=== PATIENT | female | born 1975 | race Caucasian/White ===

== ENCOUNTER 2017-03-27 17:26 | Emergency (ER) | payer OTHER ==
[~2017-03-27] VITALS: Ht 165.1 cm; Wt 74.8 kg
--- NOTE | 2017-03-27 17:59 | NUR ---
Pt stated " you guys are taking too long " and walked out of ER with steady gait.
== END 2017-03-27 18:02 | disposition left against medical advice (07) ==
LOC: ER 17:27
DX: F41.9 Anxiety disorder, unspecified (principal); Z53.21 Procedure and treatment not carried out due to patient leaving prior to being seen by health care provider
CPT/HCPCS: A4663

== ENCOUNTER 2017-06-26 17:52 | Emergency (ER) | payer SELFPAY ==
[~2017-06-26] VITALS: Ht 162.6 cm; Wt 81.6 kg
[2017-06-26] MEDS ORDERED: FLUORESCEIN SODIUM 1 MG STRIP OP ONE (18:30)
[2017-06-26] MEDS ORDERED: TETRACAINE HCL 0.5% OPHT DROP 2 ML BOTTLE OP ONE (18:30)
[2017-06-26] MEDS ORDERED: SODIUM/POT/SOD CHL OPHT WASH 120 ML BOTTLE OP ONE (18:45)
[2017-06-26] MEDS ORDERED: TETRACAINE HCL 0.5% OPHT DROP 2 ML BOTTLE ONE (18:45)
[2017-06-26] MEDS ORDERED: FLUORESCEIN SODIUM 1 MG STRIP ONE (18:46)
--- NOTE | 2017-06-26 18:52 | NUR ---
Patient discharged to home in stable conditon. Written and verbal after care instructions given. Patient verbalizes understanding of instructions.PT WALKS IN STEADY GAIT. PT ABLE TO OPEN EYES AND SEE BETTER. PT SAYS FEELS BETTER.
[2017-06-26] MEDS ORDERED: SODIUM/POT/SOD CHL OPHT WASH 120 ML BOTTLE ONE (18:54)
[2017-06-26 18:55] VITALS: BP 109/61
== END 2017-06-26 18:56 | disposition home or self-care (01) ==
LOC: ER 17:53
DX: S05.01XA Injury of conjunctiva and corneal abrasion without foreign body, right eye, initial encounter (principal); S05.02XA Injury of conjunctiva and corneal abrasion without foreign body, left eye, initial encounter; X58.XXXA Exposure to other specified factors, initial encounter; Y93.89 Activity, other specified; Y92.89 Other specified places as the place of occurrence of the external cause; Y99.8 Other external cause status
CPT/HCPCS: A4663

== ENCOUNTER 2022-07-05 20:41 | Emergency (ER) | payer SELFPAY ==
--- NOTE | 2022-07-05 20:52 | NUR ---
PATIENT WAS NOT TRIAGED OR SEEN BY ER MD.
== END 2022-07-05 20:52 | disposition left against medical advice (07) ==
LOC: ER 20:41
DX: Z53.21 Procedure and treatment not carried out due to patient leaving prior to being seen by health care provider (principal)

== ENCOUNTER 2025-05-09 21:42 | Emergency (ER) | payer SELFPAY ==
[~2025-05-09] VITALS: Ht 165.1 cm; Wt 81.6 kg
[2025-05-09 22:32] LABS: CREATININE 0.7 mg/dL (0.6-1.3); SODIUM SERUM 141 mmol/L (136-145); UREA NITROGEN, BLOOD 16 mg/dL (7-18)
[2025-05-09 22:33] LABS: ETHANOL < 3 MG/DL (0-10)
[2025-05-09 22:37] LABS: ASPARTATE AMINOTRANSFERASE 15 U/L (15-37); TOTAL PROTEIN, SERUM 7.6 g/dL (6.4-8.2)
[2025-05-09 22:59] LABS: PLATELET COUNT (AUTO) 259 K/uL (179-408); RED BLOOD CELL COUNT(AUTO) 4.37 MIL/uL (3.63-4.92); RED CELL DISTRIBUTION WIDTH 13.8 % (12.3-17.7); WHITE BLOOD COUNT (AUTO) 8.6 K/uL (3.8-11.8)
[2025-05-10 04:30] LABS: *BILIRUBIN,URIN NEGATIVE (NEGATIVE); *BLOOD, URINE NEGATIVE (NEGATIVE); *CLARITY,URINE CLEAR (CLEAR); *COLOR,URINE LIGHT YELLOW (YELLOW); *KETONES,URINE NEGATIVE (NEGATIVE); *PROTEIN,URINE NEGATIVE (NEGATIVE); *UROBILINOGEN,URINE 0.2 E.U./dl (NORMAL); LEUKOCYTE ESTERASE ,URINE NEGATIVE (NEGATIVE); NITRITE, URINE POSITIVE (NEGATIVE); UGLUCOSE NEGATIVE (NEGATIVE)
[2025-05-10 04:41] LABS: *AMPHETAMINE, URINE NEGATIVE (NEGATIVE); *BARBITURATE, URINE NEGATIVE (NEGATIVE); *BENZODIAZEPINE, URINE POSITIVE (NEGATIVE); *CANNABINOID, URINE NEGATIVE (NEGATIVE); *COCCAINE, URINE NEGATIVE (NEGATIVE); *OPIATE, URINE NEGATIVE (NEGATIVE); *PHENCYCLIDINE SCREEN,URINE NEGATIVE (NEGATIVE); FENTANYL, URINE NEGATIVE (NEGATIVE)
[2025-05-10 04:44] LABS: SQUAMOUS EPITHELIAL CELL,UR FEW /HPF (NONE SEEN)
[2025-05-10 04:50] LABS: *URINE HCG, QUAL NEGATIVE (NEGATIVE)
[2025-05-10] MEDS ORDERED: CEPH500C2 PO (05:56)
[2025-05-10 09:00] VITALS: BP 135/88
[2025-05-10 09:37] VITALS: BP 135/88; TEMP 98; O2SAT 96
== END 2025-05-10 09:38 | disposition home or self-care (01) ==
LOC: ER 21:44
DX: T42.4X1A Poisoning by benzodiazepines, accidental (unintentional), initial encounter (principal); R41.82 Altered mental status, unspecified; I63.9 Cerebral infarction, unspecified; N39.0 Urinary tract infection, site not specified; Y92.89 Other specified places as the place of occurrence of the external cause
CPT/HCPCS: 36415; 70450; 84443; 84703; 85025; 87086; A4606; A4663; G0480